=== PATIENT | male | born 1995 ===

== ENCOUNTER 2020-05-08 15:32 | Emergency (ER) | payer SELFPAY ==
[2020-05-08 15:50] VITALS: BP 132/79
--- NOTE | 2020-05-08 15:57 | Emergency Department Report ---
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 Onset 1.5 months ago. Patient states that he saw a primary care doctor who told him he was likely related to the hernia and he was referred to general surgeon. He states that he saw the surgeon today but the surgeon states that he did not have a hernia and that his pain could be related to an infection and so he came here today. Patient reports associated mild right testicle swelling as well as intermittent lower abdominal pain, and suprapubic pain when he urinates otherwise denies any dysuria, hematuria, penile discharge, testicular discoloration, vomiting, diarrhea, fever, chills or any other symptoms. MD Complaint: testicle pain, groin pain -: month(s) (1.5) ED Review of Systems ROS: Stated complaint: GROIN PAIN, ABD PAIN Other details as noted in HPI Comment: All other systems reviewed and negative Constitutional: denies: chills, fever Respiratory: denies: cough, shortness of breath, wheezing Cardiovascular: denies: chest pain, palpitations Gastrointestinal: abdominal pain Genitourinary: testicular pain. denies: urgency, dysuria, frequency, hematuria, discharge, testicular mass Musculoskeletal: denies: back pain, joint swelling, arthralgia Skin: denies: rash, lesions ED Physical Exam - General Limitations: Language Barrier General appearance: alert, in no apparent distress - Head Head exam: Present: atraumatic, normocephalic, normal inspection - Eye Eye exam: Present: normal appearance, PERRL, EOMI - ENT ENT exam: Present: normal exam, mucous membranes moist - Respiratory Respiratory exam: Absent: respiratory distress - Cardiovascular Cardiovascular Exam: Present: regular rate - GI/Abdominal GI/Abdominal exam: Present: soft. Absent: distended, tenderness - exam: Present: normal inspection, testicular tenderness (Mild right; mild tenderness to palpation epididymis right side), other (No inguinal lymph nodes noted; no apparent hernia noted). Absent: urethral discharge, scrotal swelling, vertical testicular lie, circumcision - Extremities Exam Extremities exam: Present: normal inspection, full ROM. Absent: tenderness, pedal edema, joint swelling - Neurological Exam Neurological exam: Present: alert, oriented X3, CN II-XII intact, normal gait - Psychiatric Psychiatric exam: Present: normal affect, normal mood - Skin Skin exam: Present: intact ED Course Vital Signs 05/08/20 15:48 Temperature 98.3 F Pulse Rate 78 Respiratory 18 Rate Blood Pressure 132/79 [Right] O2 Sat by Pulse 95 Oximetry ED Medical Decision Making - Radiology Data Radiology results: report reviewed Patient: JENSEN MARSHALL MR#: [id number] : 1995 Acct:[id number] Age/Sex: 24 / M ADM Date: 05/08/20 Loc: ED Attending Dr: Ordering Physician: BEULAH MUNOZ Date of Service: 05/08/20 Procedure(s): US testicular doppler comp Accession Number(s): [id number] cc: BEULAH MUNOZ ULTRASOUND SCROTUM INDICATION / CLINICAL INFORMATION: Right testicular pain and swelling. COMPARISON: None available. FINDINGS -- RIGHT TESTIS: Size = 4.5 x 2.2 x 3.0 cm. - Appearance: No significant abnormality. - Cyst or Mass: None. - Color Doppler Flow: No significant abnormality. EPIDIDYMIS: No significant abnormality. HYDROCELE: None. VARICOCELE: None demonstrated. FINDINGS -- LEFT TESTIS: Size = 4.1 x 2.0 x 3.0 cm. - Appearance: No significant abnormality. - Cyst or Mass: None. - Color Doppler Flow: No significant abnormality. EPIDIDYMIS: No significant abnormality. HYDROCELE: None. VARICOCELE: None demonstrated. ADDITIONAL FINDINGS: None. IMPRESSION: 1. No significant abnormality. Signer Name: Marvel Villeda MD Signed: 05/08/2020 5:16 PM Workstation Name: [id number] Transcribed By: JOSE M Dictated By: Marvel Villeda MD Electronically Authenticated By: Marvel Villeda MD Signed Date/Time: 05/08/201715 DD/ 14 TD/TT: - Medical Decision Making 24 yr old male with right testicular/groin pain x 1.5 mths. UA unremarkable. US testicles nl. pt is well appearing, not toxic and is not in any distress. Abd soft non tender. unremarkable genitalia exam. His VS stable. He ambulates with nl gait. no further w/u indicated at this time. Discussed results with patient. Recommend f/u with urology for further eval if symptoms persist. Pt express understanding of instructions and agreed with plan. pt was stable at time of d/c. Critical care attestation.: If time is entered above; I have spent that time in minutes in the direct care of this critically ill patient, excluding procedure time. ED Disposition Clinical Impression: Testicular pain, right, Right inguinal pain Disposition: TO HOME OR SELFCARE Is pt being admited?: No Does the pt Need Aspirin: No Condition: Stable Instructions: Pain Without a Known Cause Additional Instructions: You can take Tylenol and ibuprofen to help with pain. Follow-up with a urologist if your symptoms persist or you can follow-up with a primary care doctor who can help you get referred to a urologist. Return to the ER if your symptoms changes or worsens in any way. Referrals: JUAN HUFF MD [Staff Physician] - 3-5 Days LELA ALVARES MD [Staff Physician] - 3-5 Days Time of Disposition: 18:19
[2020-05-08 16:11] LABS: Bilirubin,Urine NEG (Negative); Blood,Urine NEG (Negative); Color,Urine Yellow (Yellow); Mucus,Urine FEW /HPF; Protein,Urine <15 mg/dL mg/dL (Negative); RBC,Urine < 1.0 /HPF (0.0-6.0); Urobilinogen,Urine < 2.0 mg/dL (<2.0)
--- NOTE | 2020-05-08 17:20 | Ultrasound Report ---
ULTRASOUND SCROTUM INDICATION / CLINICAL INFORMATION: Right testicular pain and swelling. COMPARISON: None available. FINDINGS -- RIGHT TESTIS: Size = 4.5 x 2.2 x 3.0 cm. - Appearance: No significant abnormality. - Cyst or Mass: None. - Color Doppler Flow: No significant abnormality. EPIDIDYMIS: No significant abnormality. HYDROCELE: None. VARICOCELE: None demonstrated. FINDINGS -- LEFT TESTIS: Size = 4.1 x 2.0 x 3.0 cm. - Appearance: No significant abnormality. - Cyst or Mass: None. - Color Doppler Flow: No significant abnormality. EPIDIDYMIS: No significant abnormality. HYDROCELE: None. VARICOCELE: None demonstrated. ADDITIONAL FINDINGS: None. IMPRESSION: 1. No significant abnormality. Signer Name: Marvel Villeda MD Signed: 05/08/2020 5:16 PM Workstation Name: [id number]
== END 2020-05-08 18:40 | disposition home or self-care (01) ==
LOC: ED 15:32
DX: N50.811 Right testicular pain (principal); R10.31 Right lower quadrant pain
CPT/HCPCS: 81001; 93975

== ENCOUNTER 2020-05-18 16:45 | Emergency (ER) | payer SELFPAY ==
--- NOTE | 2020-05-18 17:29 | Event Note ---
ED Screening Note ED Screening Note: georgian interpretation by security Delio pt presents for right leg swelling and pain for 2 months he states he feels knots on the leg he states he has pain in the groin and calf he states two months ago he thought it was a hernia he states he was evaluated in the ED, he had an US of the testicles which was normal and had a normal UA he states he went to see the specialist he was referred to in the ED and they advised that they were concerned for DVT given the leg swelling and pain and they did not see any signs of hernia This initial assessment/diagnostic orders/clinical plan/treatment(s) is/are subject to change based on patients health status, clinical progression and re- assessment by fellow clinical providers in the ED. Further treatment and workup at subsequent clinical providers discretion. Patient/guardian urged not to elope from the ED as their condition may be serious if not clinically assessed and managed. Initial orders include: labs, US
[2020-05-18 17:30] VITALS: BP 146/84
[2020-05-18 18:37] LABS: Basophils % (Auto) 0.6 % (0.0-1.8); Eosinophils # (Auto) 0.1 K/mm3 (0.0-0.4); Eosinophils % (Auto) 1.4 % (0.0-4.3); Hemoglobin 15.9 gm/dl (11.8-15.2); Lymphocytes # (Auto) 2.6 K/mm3 (1.2-5.4); Lymphocytes % (Auto) 30.1 % (13.4-35.0); Mean Corpuscular HGB Conc 34 % (32-34); Mean Corpuscular Volume 87 fl (84-94); Monocytes # (Auto) 0.9 K/mm3 (0.0-0.8); Monocytes % (Auto) 10.4 % (0.0-7.3); Platelet Count 264 K/mm3 (140-440); Red Blood Count 5.38 M/mm3 (3.65-5.03); Red Cell Distribution Width 13.9 % (13.2-15.2)
[2020-05-18 18:52] LABS: INR 0.99 (0.87-1.13)
[2020-05-18 18:53] LABS: Alanine Aminotransferase 43 units/L (7-56); Albumin 4.5 g/dL (3.9-5); Blood Urea Nitrogen 11 mg/dL (9-20); Hemolysis Index 8; Partial Thromboplastin Time 28.6 Sec. (24.2-36.6)
--- NOTE | 2020-05-18 18:57 | Vascular Lab Report ---
DUPLEX DOPPLER LOWER EXTREMITY VEINS, RIGHT INDICATION: RLE edema and pain. TECHNIQUE: Duplex doppler imaging was performed through the veins of the right lower extremity using venous comp ression and other maneuvers. COMPARISON: None available. FINDINGS: Common Femoral vein: Negative. Superficial Femoral vein: Negative. Popliteal vein: Negative. Calf veins: Negative. Additional findings: None. IMPRESSION: 1. No sonographic evidence for DVT in the right lower extremity. Signer Name: Deja Gonzales MD Signed: 05/18/2020 6:52 PM Workstation Name: [id number]
[2020-05-18 18:58] LABS: BUN/Creatinine Ratio 16
--- NOTE | 2020-05-18 19:44 | Emergency Department Report ---
ED General Adult HPI - General Chief complaint: Extremity Injury, Lower Stated complaint: LT LEG PAIN Time Seen by Provider: 05/18/20 17:26 Source: patient Mode of arrival: Ambulatory Limitations: No Limitations - History of Present Illness Initial comments: Patient is 24 years old male with no significant past medical history. Patient presented to the ER complaining of right leg and thigh swelling for the last 2month. Patient has been evaluated by his primary doctor referred to a surgeon for possible hernia but he was told that he does not have hernia. Patient denied any chest pain or shortness of breath. No fever or chills. Patient also denied any recent injury. ED Review of Systems ROS: Stated complaint: LT LEG PAIN Other details as noted in HPI Comment: All other systems reviewed and negative Constitutional: denies: chills, diaphoresis Respiratory: denies: cough, shortness of breath, SOB with exertion Cardiovascular: denies: chest pain, palpitations Gastrointestinal: denies: abdominal pain, nausea Musculoskeletal: arthralgia, myalgia. denies: back pain Neurological: denies: headache, weakness, numbness, paresthesias, confusion ED Past Medical Hx - Past Medical History Previous Medical History?: No - Surgical History Past Surgical History?: Yes Hx Appendectomy: Yes - Social History Smoking Status: Never Smoker ED Physical Exam - General Limitations: No Limitations General appearance: alert, in no apparent distress - Head Head exam: Present: atraumatic, normocephalic, normal inspection - Eye Eye exam: Present: normal appearance, PERRL - ENT ENT exam: Present: normal exam, normal orophraynx, mucous membranes moist - Neck Neck exam: Present: normal inspection - Respiratory Respiratory exam: Present: normal lung sounds bilaterally - Cardiovascular Cardiovascular Exam: Present: regular rate, normal rhythm, normal heart sounds - GI/Abdominal GI/Abdominal exam: Present: soft, normal bowel sounds. Absent: distended, tenderness, guarding, rebound, rigid, organomegaly, mass, bruit, pulsatile mass, hernia - Extremities Exam Extremities exam: Present: normal inspection, full ROM, normal capillary refill. Absent: tenderness, calf tenderness - Back Exam Back exam: Present: normal inspection, full ROM. Absent: CVA tenderness (R), CVA tenderness (L) - Neurological Exam Neurological exam: Present: alert, oriented X3, CN II-XII intact, normal gait, reflexes normal. Absent: motor sensory deficit - Psychiatric Psychiatric exam: Present: normal mood - Skin Skin exam: Present: warm, intact, normal color ED Course Vital Signs 05/18/20 17:29 Temperature 98.5 F Pulse Rate 112 H Respiratory 18 Rate Blood Pressure 146/84 O2 Sat by Pulse 96 Oximetry ED Medical Decision Making - Lab Data Result diagrams: 05/18/20 18:08 05/18/20 18:08 - Radiology Data Radiology results: report reviewed - Medical Decision Making Patient is 24 years old male with no significant past medical history. Patient presented to the ER complaining of right leg and thigh swelling for the last 2month. Patient has been evaluated by his primary doctor referred to a surgeon for possible hernia but he was told that he does not have hernia. Patient denied any chest pain or shortness of breath. No fever or chills. Patient also denied any recent injury. Right Doppler ultrasound is negative for DVT. Patient symptom is most likely musculoskeletal. Patient given prescription for Naprosyn and advised to follow- up with his primary doctor in the next 2 to 3 days and to return to the ER if he develop any new symptoms. Critical care attestation.: If time is entered above; I have spent that time in minutes in the direct care of this critically ill patient, excluding procedure time. ED Disposition Clinical Impression: Right leg pain Disposition: DC-01 TO HOME OR SELFCARE Is pt being admited?: No Condition: Stable Referrals: PRIMARY CARE, [Primary Care Provider] - 3-5 Days
== END 2020-05-18 20:15 | disposition home or self-care (01) ==
LOC: ED 16:45
DX: M79.604 Pain in right leg (principal); Z90.49 Acquired absence of other specified parts of digestive tract
CPT/HCPCS: 36415; 80053; 85025; 85610; 85730